=== PATIENT | male | born 1965 | race Caucasian/White ===

== ENCOUNTER 2020-02-02 16:13 | Inpatient (IN) | payer MEDICARE ==
[~2020-02-02] VITALS: Ht 182.9 cm; Wt 78.0 kg
[2020-02-02] MEDS ORDERED: LITH300T3 PO (16:28)
[2020-02-02] MEDS ORDERED: OLAN10TA3 PO (16:28)
[2020-02-02 16:56] LABS: BASOPHILS # (AUTO) 0.1 K/uL (0.0-8.0); BASOPHILS % (AUTO) 0.8 % (0.0-2.0); EOSINOPHILS # (AUTO) 0.1 K/uL (0.0-0.7); HEMATOCRIT 43.9 % (36.7-47.1); HEMOGLOBIN 14.8 g/dL (12.5-16.3); LYMPHOCYTES # (AUTO) 1.3 K/uL (20.0-40.0); LYMPHOCYTES % (AUTO) 12.7 % (20.5-51.5); MEAN CORPUSCULAR HEMOGLOBIN 31.2 uug (23.8-33.4); MEAN CORPUSCULAR HGB CONC 34 g/dL (32.5-36.3); MEAN CORPUSCULAR VOLUME 92.3 fL (73.0-96.2); MONOCYTES # (AUTO) 0.7 K/uL (2.0-10.0); MONOCYTES % (AUTO) 7.3 % (0.0-11.0); NEUTROPHILS # (AUTO) 7.8 K/uL (1.8-8.9); NEUTROPHILS % (AUTO) 78.2 % (38.5-71.5); PLATELET COUNT (AUTO) 285 K/uL (152-348); RED BLOOD CELL COUNT(AUTO) 4.75 MIL/uL (4.06-5.63)
[2020-02-02 17:08] LABS: ALANINE AMINOTRANSFERASE 31 U/L (16-63); ALKALINE PHOSPHATASE 78 U/L (50-136); ASPARTATE AMINOTRANSFERASE 22 U/L (15-37); BILIRUBIN,DIRECT 0.3 mg/dL (0.0-0.2); BILIRUBIN,TOTAL 1.5 mg/dL (0.2-1.0); CARBON DIOXIDE 23 mmol/L (21-32); CHLORIDE 105 mmol/L (98-107); CREATININE 1.3 mg/dL (0.6-1.3); GLUCOSE 100 mg/dL (74-106); POTASSIUM 3.9 mmol/L (3.5-5.1); TOTAL PROTEIN, SERUM 7.2 g/dL (6.4-8.2); UREA NITROGEN, BLOOD 22 mg/dL (7-18)
[2020-02-02 17:14] LABS: ACETAMINOPHEN < 2.0 ug/mL (10-30)
[2020-02-02 17:45] LABS: ETHANOL < 3 MG/DL (0-0)
[2020-02-02 19:13] LABS: *BILIRUBIN,URIN NEGATIVE (NEGATIVE); *BLOOD, URINE NEGATIVE (NEGATIVE); *CLARITY,URINE CLEAR (CLEAR); *COLOR,URINE YELLOW (YELLOW); *KETONES,URINE 1+ (NEGATIVE); *UROBILINOGEN,URINE 0.2 E.U./dl (NORMAL); LEUKOCYTE ESTERASE ,URINE NEGATIVE (NEGATIVE); NITRITE, URINE NEGATIVE (NEGATIVE); UGLUCOSE NEGATIVE (NEGATIVE)
[2020-02-02 19:20] LABS: *AMPHETAMINE, URINE NEGATIVE (NEGATIVE); *CANNABINOID, URINE NEGATIVE (NEGATIVE); *COCCAINE, URINE NEGATIVE (NEGATIVE); *OPIATE, URINE NEGATIVE (NEGATIVE); *PHENCYCLIDINE SCREEN,URINE NEGATIVE (NEGATIVE)
[2020-02-02 20:00] VITALS: BP 112/78
[2020-02-02] MEDS ORDERED: ACETAMINOPHEN 325 MG TABLET PO PRN (20:00)
[2020-02-02] MEDS ORDERED: MAG HYDROX/AL HYDROX/SIMETH 30 ML LIQUID UDC PO PRN (20:00)
[2020-02-02] MEDS ORDERED: ZOLPIDEM 5 MG TABLET PO PRN (20:00)
[2020-02-02] MEDS ORDERED: MAGNESIUM HYDROXIDE 30 ML LIQUID UDC PO PRN (20:00)
[2020-02-02] MEDS ORDERED: BLOOD SUGAR DIAGNOSTIC 1 EACH STRIP VI ONE (20:00)
[2020-02-02] MEDS: LORAZEPAM 1 MG TABLET PO PRN (21:14)
[2020-02-03 07:45] VITALS: BP 97/66
[2020-02-03 08:56] LABS: BILIRUBIN,TOTAL 1.1 mg/dL (0.2-1.0); CREATININE 1.3 mg/dL (0.6-1.3); POTASSIUM 4.3 mmol/L (3.5-5.1); TOTAL PROTEIN, SERUM 6.7 g/dL (6.4-8.2)
[2020-02-03 10:52] LABS: THYROID STIMULATING HORMONE 0.954 mIU/mL (0.358-3.740)
[2020-02-03] MEDS: LITHIUM CARBONATE 300 MG CAPSULE PO SCH (16:15)
[2020-02-03 16:28] VITALS: BP 116/68
[2020-02-03 20:00] VITALS: BP 120/78
[2020-02-03] MEDS: OLANZAPINE 5 MG TABLET PO SCH (20:50)
[2020-02-04 07:30] VITALS: BP 127/80
[2020-02-04] MEDS: LITHIUM CARBONATE 300 MG CAPSULE PO SCH ×2 (08:20→16:07)
[2020-02-04 16:00] VITALS: BP 134/76
[2020-02-04 20:00] VITALS: BP 112/73
[2020-02-04] MEDS: OLANZAPINE 5 MG TABLET PO SCH (20:28)
[2020-02-05 07:30] VITALS: BP 112/76
[2020-02-05] MEDS: LITHIUM CARBONATE 300 MG CAPSULE PO SCH ×2 (08:16→16:00)
[2020-02-05 15:23] VITALS: BP 91/51
[2020-02-05 20:00] VITALS: BP 112/82
[2020-02-05] MEDS: OLANZAPINE 5 MG TABLET PO SCH (20:38)
[2020-02-06 07:30] VITALS: BP 115/68
[2020-02-06 07:55] LABS: CREATININE 1.2 mg/dL (0.6-1.3); POTASSIUM 4.4 mmol/L (3.5-5.1)
[2020-02-06 08:10] LABS: BASOPHILS # (AUTO) 0.1 K/uL (0.0-8.0); BASOPHILS % (AUTO) 1.3 % (0.0-2.0); EOSINOPHILS # (AUTO) 0.3 K/uL (0.0-0.7); EOSINOPHILS % (AUTO) 6.3 % (0.0-7.0); HEMATOCRIT 40.9 % (36.7-47.1); HEMOGLOBIN 13.9 g/dL (12.5-16.3); LYMPHOCYTES # (AUTO) 1.3 K/uL (20.0-40.0); LYMPHOCYTES % (AUTO) 23.7 % (20.5-51.5); MEAN CORPUSCULAR HEMOGLOBIN 31.4 uug (23.8-33.4); MEAN CORPUSCULAR HGB CONC 34 g/dL (32.5-36.3); MEAN CORPUSCULAR VOLUME 92.4 fL (73.0-96.2); MONOCYTES # (AUTO) 0.5 K/uL (2.0-10.0); MONOCYTES % (AUTO) 8.7 % (0.0-11.0); NEUTROPHILS # (AUTO) 3.3 K/uL (1.8-8.9); PLATELET COUNT (AUTO) 242 K/uL (152-348); RED BLOOD CELL COUNT(AUTO) 4.43 MIL/uL (4.06-5.63); WHITE BLOOD COUNT (AUTO) 5.5 K/uL (3.6-10.2)
[2020-02-06] MEDS: LITHIUM CARBONATE 300 MG CAPSULE PO SCH ×2 (08:11→16:16)
[2020-02-06 16:00] VITALS: BP 112/65
[2020-02-06] MEDS: OLANZAPINE 5 MG TABLET PO SCH (20:03)
[2020-02-06 20:04] VITALS: BP 110/64
[2020-02-07 07:30] VITALS: BP 99/53
[2020-02-07 08:01] LABS: *BILIRUBIN,URIN NEGATIVE (NEGATIVE); *BLOOD, URINE NEGATIVE (NEGATIVE); *CLARITY,URINE SLIGHTLY CLOUDY (CLEAR); *COLOR,URINE YELLOW (YELLOW); *KETONES,URINE NEGATIVE (NEGATIVE); *UROBILINOGEN,URINE 0.2 E.U./dl (NORMAL); LEUKOCYTE ESTERASE ,URINE NEGATIVE (NEGATIVE); NITRITE, URINE NEGATIVE (NEGATIVE); UGLUCOSE NEGATIVE (NEGATIVE)
[2020-02-07 08:13] LABS: *URINE TOTAL PROTEIN RANDOM < 6.0 mg/dL (<150/24HR)
[2020-02-07] MEDS: LITHIUM CARBONATE 300 MG CAPSULE PO SCH ×2 (08:26→16:49)
[2020-02-07 11:19] LABS: BACTERIA,URINE NONE SEEN /HPF (NONE SEEN); RBC,URINE 0-3 /HPF (0-3); SQUAMOUS EPITHELIAL CELL,UR NONE SEEN /HPF (NONE SEEN); WBC,URINE 0-3 /HPF (0-3)
[2020-02-07 15:34] VITALS: BP 115/59
[2020-02-07 20:18] VITALS: BP 100/54
[2020-02-07] MEDS: OLANZAPINE 5 MG TABLET PO SCH (21:01)
[2020-02-08 07:30] VITALS: BP 141/87
[2020-02-08] MEDS: LITHIUM CARBONATE 300 MG CAPSULE PO SCH ×3 (08:30→16:58)
[2020-02-08 16:37] VITALS: BP 108/66
[2020-02-08 20:00] VITALS: BP 132/72
[2020-02-08] MEDS: OLANZAPINE 5 MG TABLET PO SCH (20:30)
[2020-02-09 07:30] VITALS: BP 99/53
[2020-02-09] MEDS: LITHIUM CARBONATE 300 MG CAPSULE PO SCH ×3 (08:17→16:04)
[2020-02-09 12:06] LABS: CALCITRIOL VIT D,1,25 DIHYDROX 39.9 pg/mL (19.9-79.3)
[2020-02-09 16:10] VITALS: BP 119/66
[2020-02-09 20:00] VITALS: BP 137/69
[2020-02-09] MEDS: OLANZAPINE 5 MG TABLET PO SCH (20:59)
[2020-02-09] MEDS: LORAZEPAM 1 MG TABLET PO PRN (22:41)
[2020-02-10 07:30] VITALS: BP 91/45
[2020-02-10 08:17] LABS: BASOPHILS # (AUTO) 0.1 K/uL (0.0-8.0); BASOPHILS % (AUTO) 1.2 % (0.0-2.0); EOSINOPHILS # (AUTO) 0.4 K/uL (0.0-0.7); EOSINOPHILS % (AUTO) 5.6 % (0.0-7.0); HEMATOCRIT 39.6 % (36.7-47.1); HEMOGLOBIN 13.5 g/dL (12.5-16.3); LYMPHOCYTES # (AUTO) 1.6 K/uL (20.0-40.0); LYMPHOCYTES % (AUTO) 23.1 % (20.5-51.5); MEAN CORPUSCULAR HEMOGLOBIN 31.8 uug (23.8-33.4); MEAN CORPUSCULAR HGB CONC 34 g/dL (32.5-36.3); MEAN CORPUSCULAR VOLUME 93.2 fL (73.0-96.2); MONOCYTES # (AUTO) 0.6 K/uL (2.0-10.0); MONOCYTES % (AUTO) 9.2 % (0.0-11.0); NEUTROPHILS # (AUTO) 4.1 K/uL (1.8-8.9); NEUTROPHILS % (AUTO) 60.9 % (38.5-71.5); PLATELET COUNT (AUTO) 219 K/uL (152-348); RED BLOOD CELL COUNT(AUTO) 4.25 MIL/uL (4.06-5.63); WHITE BLOOD COUNT (AUTO) 6.7 K/uL (3.6-10.2)
[2020-02-10 08:26] LABS: CREATININE 1.2 mg/dL (0.6-1.3); POTASSIUM 4.1 mmol/L (3.5-5.1)
[2020-02-10] MEDS: LITHIUM CARBONATE 300 MG CAPSULE PO SCH ×3 (09:34→17:13)
[2020-02-10 16:00] VITALS: BP 117/64
[2020-02-10 20:00] VITALS: BP 137/80
[2020-02-10] MEDS: OLANZAPINE 5 MG TABLET PO SCH (20:11)
[2020-02-11 07:30] VITALS: BP 93/44
[2020-02-11] MEDS: LITHIUM CARBONATE 300 MG CAPSULE PO SCH ×3 (09:01→16:33)
[2020-02-11 15:13] VITALS: BP 130/61
[2020-02-11 19:45] VITALS: BP 111/68
[2020-02-11] MEDS: OLANZAPINE 5 MG TABLET PO SCH (20:04)
[2020-02-12 07:30] VITALS: BP 104/58
[2020-02-12] MEDS: LITHIUM CARBONATE 300 MG CAPSULE PO SCH ×3 (08:45→17:23)
[2020-02-12 16:00] VITALS: BP 113/67
[2020-02-12 20:16] VITALS: BP 117/68
[2020-02-12] MEDS: OLANZAPINE 5 MG TABLET PO SCH (20:18)
[2020-02-13 07:30] VITALS: BP 103/54
[2020-02-13] MEDS: LITHIUM CARBONATE 300 MG CAPSULE PO SCH ×3 (08:25→16:44)
[2020-02-13 16:14] VITALS: BP 125/64
[2020-02-13] MEDS: LORAZEPAM 1 MG TABLET PO PRN (19:38)
[2020-02-13 20:05] VITALS: BP 112/66
[2020-02-13] MEDS: OLANZAPINE 5 MG TABLET PO SCH (21:02)
[2020-02-14 07:30] VITALS: BP 115/66
[2020-02-14] MEDS: LITHIUM CARBONATE 300 MG CAPSULE PO SCH ×3 (08:09→16:59)
[2020-02-14 15:11] VITALS: BP 116/70
[2020-02-14 19:45] VITALS: BP 121/70
[2020-02-14] MEDS: OLANZAPINE 5 MG TABLET PO SCH (21:26)
[2020-02-15 07:30] VITALS: BP 112/70
[2020-02-15] MEDS: LITHIUM CARBONATE 300 MG CAPSULE PO SCH ×2 (08:24→12:12)
== END 2020-02-15 13:30 | disposition home or self-care (01) | DRG 885 ==
LOC: ER 16:13 → GPS 19:10
PROVIDERS: ADMIT Psychiatry & Neurology Psychiatry; ATTEND Internal Medicine
DX: F31.64 Bipolar disorder, current episode mixed, severe, with psychotic features (principal); N17.0 Acute kidney failure with tubular necrosis; E22.2 Syndrome of inappropriate secretion of antidiuretic hormone; F23 Brief psychotic disorder; E83.52 Hypercalcemia; F41.9 Anxiety disorder, unspecified; Z91.19 Patient's noncompliance with other medical treatment and regimen; R73.9 Hyperglycemia, unspecified; E80.6 Other disorders of bilirubin metabolism; Z73.6 Limitation of activities due to disability; E86.1 Hypovolemia
CPT/HCPCS: 36415; 70030-TC; 71045; 82652; 83970; 84156; 84300; 84443; 85025; 87086; 93005; A4663; G0480